=== PATIENT | female | born 1970 | race Two or more races ===

== ENCOUNTER 2022-11-26 03:07 | Inpatient (IN) | payer MEDICAID ==
[~2022-11-26] VITALS: Ht 170.2 cm; Wt 83.5 kg
[2022-11-26 03:34] LABS: Basophils # (auto) 0 10 ^3/uL (0-0.2); Basophils % (auto) 0.4 % (0.0-2.0); Eosinophils # (auto) 0.2 10 ^3/uL (0-0.8); Eosinophils % (auto) 2.7 % (0.0-7.0); Hematocrit 45.8 % (36.0-46.0); Hemoglobin 15.6 g/dL (12.2-16.2); Lymphocytes # (auto) 2.4 10 ^3/uL (0.4-5.4); Lymphocytes % (auto) 42.3 % (10.0-50.0); Mean Corpuscular Hemoglobin 29.7 pg (28.0-32.0); Mean Corpuscular Hgb Conc. 34.1 g/dL (32.0-36.0); Mean Corpuscular Volume 87.2 fL (80.0-100.0); Monocytes # (auto) 0.5 10 ^3/uL (0-1.3); Neutrophils # (auto) 2.6 10 ^3/uL (1.6-8.6); Neutrophils % (auto) 46.6 % (37.0-80.0); Nucleated Red Blood Cells % 0.2 %; Red Blood Cells 5.25 10^6/uL (4.0-5.20); Red Cell Distribution Width 13.7 % (11.8-14.3); White Blood Cell 5.7 10^3/uL (4.4-10.8)
[2022-11-26 03:55] LABS: Albumin 3.9 g/dL (3.4-5.0); Calcium 9.4 mg/dL (8.5-10.1); Potassium 3.6 mmol/L (3.5-5.1)
[2022-11-26 03:57] LABS: BUN/Creatinine Ratio 23.3
[2022-11-26 03:59] LABS: Bilirubin, Total 0.6 mg/dL (0.2-1.0); Total Protein 8.1 g/dL (6.4-8.2)
[2022-11-26] MEDS ORDERED: ZOLPIDEM TARTRATE 5 MG TAB PO PRN (10:45)
[2022-11-26] MEDS ORDERED: ONDANSETRON HCL 4 MG/2 ML VIAL IV PRN (10:45)
[2022-11-26] MEDS ORDERED: LORazepam 0.5 MG TAB PO PRN (10:45)
[2022-11-26] MEDS ORDERED: MORPHINE SULFATE INJ 2 MG/ml SYRG IV PRN (10:45)
[2022-11-26] MEDS ORDERED: ACETAMINOPHEN 325 MG TAB PO PRN (10:45)
[2022-11-26] MEDS ORDERED: MORPHINE SULFATE 4 MG/ML SYR/VIAL IV PRN (10:45)
[2022-11-26] MEDS ORDERED: NITROGLYCERIN 0.4 MG SL TAB SL PRN ×2 (10:45)
[2022-11-26] MEDS ORDERED: DEXTROSE (50%) 50ML SYRG IV PRN (11:00)
[2022-11-26] MEDS ORDERED: SODIUM CHLORIDE 0.9% 1,000 ML IV ONE (11:30)
[2022-11-26] MEDS: ACCU-CHEK COMFORT CURVE STRIP VI SCH ×4 (13:20→23:30)
[2022-11-26] MEDS: InsuLIN REG 1unit/0.01ml Soln (100units/ml) SC SCH ×4 (13:22→23:32)
[2022-11-26] MEDS: ASPirin 81 mg TAB PO SCH (13:26)
[2022-11-26 18:28] LABS: Urine Bacteria FEW /hpf (None Seen); Urine Blood Negative /uL (Negative); Urine Specific Gravity 1.009 (1.001-1.035); Urine WBC 33 /hpf (0 - 5)
[2022-11-26] MEDS: ATORVASTATIN 20 MG TAB PO SCH (21:45)
[2022-11-26] MEDS: METOPROLOL TARTRATE 25 MG TAB PO SCH (21:46)
[2022-11-26] MEDS: ENOXAPARIN SOD 80 MG/0.8ML SYRINGE SC SCH (21:46)
[2022-11-26 23:23] VITALS: BP 127/73
[2022-11-26] MEDS ORDERED: ASPI325T4 PO (23:26)
[2022-11-27] MEDS: ACCU-CHEK COMFORT CURVE STRIP VI SCH ×5 (04:00→21:33)
[2022-11-27] MEDS: InsuLIN REG 1unit/0.01ml Soln (100units/ml) SC SCH ×4 (04:00→16:37)
[2022-11-27 05:00] VITALS: BP 120/61
[2022-11-27 05:57] LABS: Basophils # (auto) 0 10 ^3/uL (0-0.2); Basophils % (auto) 0.2 % (0.0-2.0); Eosinophils # (auto) 0.1 10 ^3/uL (0-0.8); Eosinophils % (auto) 2.9 % (0.0-7.0); Hemoglobin 14.4 g/dL (12.2-16.2); Lymphocytes # (auto) 1.6 10 ^3/uL (0.4-5.4); Lymphocytes % (auto) 30.9 % (10.0-50.0); Mean Corpuscular Hemoglobin 29.3 pg (28.0-32.0); Mean Corpuscular Hgb Conc. 33.6 g/dL (32.0-36.0); Mean Corpuscular Volume 87.1 fL (80.0-100.0); Monocytes # (auto) 0.4 10 ^3/uL (0-1.3); Monocytes % (auto) 8.2 % (0.0-12.0); Neutrophils % (auto) 57.8 % (37.0-80.0); Nucleated Red Blood Cells % 0.3 %; Red Blood Cells 4.93 10^6/uL (4.0-5.20); White Blood Cell 5.2 10^3/uL (4.4-10.8)
[2022-11-27 06:19] LABS: BUN/Creatinine Ratio 26.8; Calcium 8.4 mg/dL (8.5-10.1); Potassium 3.8 mmol/L (3.5-5.1)
[2022-11-27] MEDS: ASPirin 81 mg TAB PO SCH (08:49)
[2022-11-27] MEDS: ENOXAPARIN SOD 80 MG/0.8ML SYRINGE SC SCH ×2 (08:49→08:54)
[2022-11-27] MEDS: DOCUSATE SOD 100 MG CAP PO SCH (08:50)
[2022-11-27] MEDS: METOPROLOL TARTRATE 25 MG TAB PO SCH ×2 (08:51→21:38)
[2022-11-27 09:00] VITALS: BP 124/60
[2022-11-27] MEDS ORDERED: LISINOPRIL 10 MG TAB PO SCH (10:00)
[2022-11-27] MEDS ORDERED: CLOPIDOGREL BISULFATE 75 MG TAB PO SCH (10:00)
[2022-11-27] MEDS ORDERED: PANTOPRAZOLE 40 MG TAB PO ONE (10:30)
[2022-11-27] MEDS ORDERED: DEXTROSE (50%) 50ML SYRG IV PRN (10:30)
[2022-11-27 13:00] VITALS: BP 124/66
[2022-11-27] MEDS ORDERED: LORazepam 0.5 MG TAB PO PRN (15:45)
[2022-11-27 17:00] VITALS: BP 118/67
[2022-11-27] MEDS ORDERED: metFORMIN HYDROCHLORIDE 500 MG TAB PO ONE (17:00)
[2022-11-27] MEDS: ATORVASTATIN 20 MG TAB PO SCH (21:37)
[2022-11-27 22:00] VITALS: BP 122/69
[2022-11-27] MEDS ORDERED: InsuLIN REG 1unit/0.01ml Soln (100units/ml) SC SCH (22:00)
[2022-11-28] MEDS: ACCU-CHEK COMFORT CURVE STRIP VI SCH ×2 (06:14→10:55)
[2022-11-28] MEDS: InsuLIN REG 1unit/0.01ml Soln (100units/ml) SC SCH ×2 (06:14→10:58)
[2022-11-28] MEDS: ASPirin 81 mg TAB PO SCH (08:28)
[2022-11-28] MEDS: DOCUSATE SOD 100 MG CAP PO SCH (08:28)
[2022-11-28] MEDS: METOPROLOL TARTRATE 25 MG TAB PO SCH (08:30)
[2022-11-28 09:00] VITALS: BP 117/72
[2022-11-28] MEDS ORDERED: PANTOPRAZOLE 40 MG TAB PO SCH (10:00)
[2022-11-28 13:00] VITALS: BP 126/70
[2022-11-28 13:06] VITALS: BP 117/79
== END 2022-11-28 13:37 | disposition home or self-care (01) | DRG 243 ==
LOC: ER 03:07 → TELE 10:49 → TELE-CENTR 22:50
PROVIDERS: ADMIT Hospitalist; ATTEND Internal Medicine
DX: K21.9 Gastro-esophageal reflux disease without esophagitis (principal); E11.65 Type 2 diabetes mellitus with hyperglycemia; N39.0 Urinary tract infection, site not specified; E66.9 Obesity, unspecified; Z20.822 Contact with and (suspected) exposure to COVID-19; Z83.3 Family history of diabetes mellitus; Z68.28 Body mass index [BMI] 28.0-28.9, adult
CPT/HCPCS: 36415; 70450; 71045; 80048; 80053; 81001; 82962; 83036; 83880; 84484; 85025; 87426; 93005; 93306; 96360; G0378; J1815